=== PATIENT | female | born 1990 | race African-American/Black ===

== ENCOUNTER 2017-03-24 22:19 | Emergency (ER) | payer OTHER ==
[~2017-03-24] VITALS: Ht 160 cm; Wt 113.4 kg
[~2017-03-24 22:19] MED LIST: FLAGYL500 MG PO; NAPROSYN500 MG PO; NOHOMEMEDICATIONS
[2017-03-24] MEDS ORDERED: VALIUM5 MG PO (22:41)
[2017-03-24 23:28] VITALS: BP 148/87
== END 2017-03-24 23:30 | disposition home or self-care (01) ==
LOC: ER 22:19
DX: S39.012A Strain of muscle, fascia and tendon of lower back, initial encounter (principal); J45.909 Unspecified asthma, uncomplicated; Z88.1 Allergy status to other antibiotic agents; Z91.018 Allergy to other foods; X58.XXXA Exposure to other specified factors, initial encounter; Y93.89 Activity, other specified; Y92.89 Other specified places as the place of occurrence of the external cause; Y99.8 Other external cause status

== ENCOUNTER 2017-08-03 09:34 | Emergency (ER) | payer OTHER ==
[~2017-08-03] VITALS: Ht 160 cm; Wt 115.2 kg
[~2017-08-03 09:34] MED LIST changes: +VALIUM5 MG PO
[2017-08-03] MEDS ORDERED: NAPROSYN500 MG PO (10:07)
[2017-08-03] MEDS ORDERED: FLONASE 0.05%50 MCG NASAL (10:07)
[2017-08-03] MEDS ORDERED: MUCINEX D TABL1 EAC1 PO (10:07)
[2017-08-03 10:24] VITALS: BP 178/112
== END 2017-08-03 10:24 | disposition home or self-care (01) ==
LOC: ER 09:34
DX: J06.9 Acute upper respiratory infection, unspecified (principal); J34.89 Other specified disorders of nose and nasal sinuses; B34.9 Viral infection, unspecified; J45.909 Unspecified asthma, uncomplicated; Z88.1 Allergy status to other antibiotic agents; Z91.018 Allergy to other foods

== ENCOUNTER 2017-12-09 19:28 | Emergency (ER) | payer OTHER ==
[~2017-12-09] VITALS: Ht 160 cm; Wt 115.2 kg
--- NOTE | ~2017-12-09 | EKG ---
[address] [address] ELECTROCARDIOGRAM REPORT Name: JOE TAPIA [facility] M[facility]all[facility] [id number] Admission: 12/09/17 Attend Phys: Discharge: 12/09/17 Date of : [birth year] Report #: [id number] THIS REPORT FOR: //name// [facility] ED Test Date: 2017-12-09 Test Time: 19:52:12 Pat Name: JOE TAPIA Department: Room: Gender: F Slip Bridge Operator: JASMYNE : 1990 Requested By: Sarina Calderon Order Number: [id number] MD: Cristino Alcocer Measurements Intervals Martin Rate: 104 P: 37 GA: 149 QRS: 23 QRSD: 93 T: 17 QT: 323 QTc: 425 Interpretive Statements Sinus tachycardia No previous ECG available for comparison Electronically Signed On 12-10-2017 7:35:27 CDT by Cristino lAcocer [email or web address] <ELECTRONICALLY SIGNED> By: Cristino Alcocer MD 12/10/17 0735 195 51 Cristino Alcocer MD /EPI
[~2017-12-09 19:28] MED LIST changes: +FLONASE 0.05%50 MCG NASAL; +MUCINEX D TABL1 EAC1 PO
[2017-12-09 19:57] LABS: URINE BLOOD 1+ (Negative); URINE CLARITY CLEAR; URINE COLOR YELLOW; URINE GLUCOSE-RANDOM* NEGATIVE (Negative); URINE KETONES 3+ (Negative); URINE LEUKOCYTES NEGATIVE (Negative); URINE NITRITE NEGATIVE (Negative); URINE PROTEIN (DIPSTICK) NEGATIVE (Negative); URINE SPECIFIC GRAVITY >= 1.030 (1.005-1.035)
[2017-12-09 20:02] LABS: URINE BILIRUBIN NEGATIVE (Negative); URINE REDUCING SUBSTANCE NEGATIVE
[2017-12-09 20:04] LABS: BACTERIA 1-9 Few /HPF (None Seen); MUCUS 4-6 Moderate strn/LPF (None Seen); SQUAMOUS 0-3 Few /LPF (0-3); URINE RBC 0-2 Rare /HPF (0-2); URINE WBC 0-5 Rare /HPF (0-5)
[2017-12-09 20:05] LABS: CASTS None Seen /LPF (None Seen); CRYSTALS None Seen /LPF (None Seen)
[2017-12-09 20:08] LABS: ABSOLUTE NEUTROPHILS 6.1 thou/uL (1.4-8.2); BASOPHILS 0.8 % (0.0-2.0); EOSINOPHILS 0.3 % (0.0-3.0); HEMATOCRIT 42.1 % (37.0-47.0); HEMOGLOBIN 13.7 gm/dL (12.0-15.0); LYMPHOCYTES 22.2 % (24.0-44.0); MCHC 32.6 g/dL (28.0-37.0); MCV 76.6 fL (80.0-100.0); MONOCYTES 6.2 % (1.0-8.0); PLATELET COUNT 307 thou/uL (150-400); POLYS 70.5 % (36.0-66.0); RDW 14.3 % (10.5-14.5); WBC 8.7 thou/uL (4.0-11.0)
[2017-12-09 20:22] LABS: CALCIUM 9.1 mg/dL (8.5-10.1); CREATININE 0.8 mg/dL (0.6-1.0); POTASSIUM 3.5 mmol/L (3.5-5.1)
[2017-12-09 20:27] LABS: ALBUMIN 3.8 g/dL (3.4-5.0); TOTAL BILIRUBIN 1.2 mg/dL (<0.1-1.0); TOTAL PROTEIN 7.8 g/dL (6.4-8.2)
[2017-12-09 22:56] VITALS: BP 117/64
== END 2017-12-09 23:02 | disposition home or self-care (01) ==
LOC: ER 19:28
PROVIDERS: Nurse Practitioner Family
DX: E86.0 Dehydration (principal); I95.1 Orthostatic hypotension; J45.909 Unspecified asthma, uncomplicated; Z88.1 Allergy status to other antibiotic agents

== ENCOUNTER 2017-12-11 13:56 | Inpatient (IN) | payer OTHER ==
[~2017-12-11] VITALS: Ht 160 cm; Wt 115.2 kg
--- NOTE | ~2017-12-11 | O ---
[facility] [place] [address] OPERATIVE REPORT Name: JOE TAPIA Room #: 457-P [facility] IN M.R.#: [id number] Admission: 12/11/17 Attend Phys: Mono Mahan MD Discharge: 12/13/17 Date of : [birth year] Report #: [id number] THIS REPORT FOR: //name// CC: Mono Miller DATE OF SERVICE: 12/12/2017 SURGEON: Bharat Blakely MD BACK DIGGER OPERATOR: JOVANI Alford PREOPERATIVE DIAGNOSES: 1. Acute cholecystitis. 2. Morbid obesity (BMI 45). POSTOPERATIVE DIAGNOSES: 1. Acute cholecystitis with gallbladder hydrops. 2. Morbid obesity (BMI 45). 3. Incarcerated umbilical hernia. PROCEDURE: 1. Laparoscopic cholecystectomy with intraoperative cholangiogram. 2. Laparoscopic primary repair of incarcerated umbilical hernia (separate procedure). ANESTHESIA: General endotracheal anesthesia and local anesthetic. ESTIMATED BLOOD LOSS: 5 mL. SPECIMEN: Gallbladder. COMPLICATIONS: None appreciated. INDICATIONS FOR PROCEDURE: This is a 27-year-old morbidly obese female patient of Dr. Zara Miller who was seen in the [place] [facility] with nausea, vomiting and weakness, which began several days prior. On evaluation with an abdominal ultrasound, the patient was found to have a large shadowing nonmobile stone in the neck of the gallbladder with gallbladder wall thickening and a positive sonographic Carlos's sign. The patient had an exam consistent with acute cholecystitis. She presents now for laparoscopic cholecystectomy with intraoperative cholangiogram. OPERATIVE FINDINGS: Upon entrance in the abdominal cavity, the gallbladder was quite intrahepatic and appeared to be acutely inflamed with edema within the pericholecystic tissue. The gallbladder itself was also distended such that it [facility] [address] [place] [address] OPERATIVE REPORT Name: JONG TAPIAJASONJUMANA Room #: 457-P [facility] IN .R.#: [id number] Admission: 12/11/17 Attend Phys: Mono Mahan MD Discharge: 12/13/17 Date of : [birth year] Report #: [id number] required drainage of 80 mL of hydropic fluid with a Topol needle. No pus was seen. The gallbladder wall was thickened. The critical view consisting of the cystic artery, cystic duct and lower edge of the gallbladder forming a window through which the liver was visible was seen prior to clipping the cystic duct for cholangiogram. The cholangiogram showed no filling defects within the biliary tree. Contrast flowed freely into the duodenal sweep. The cystic duct stump and cystic artery stump were each controlled with two Hemoclips, which remained in vivo. While removing the gallbladder from the abdominal cavity, omentum was seen extending up to an umbilical hernia. After removal of the gallbladder from the abdominal cavity, the hernia was amenable to repair with a separate podvjl-im-umdhv 0 PDS suture. No other significant intra-abdominal pathology was seen. At the conclusion of the operation, the sponge, needle, and instrument counts were correct. There was good hemostasis within the abdominal cavity. There was no evidence for iatrogenic injury. The gallbladder was opened on the back table, which revealed an olive-sized nonpigmented gallstone in the neck of the gallbladder. DESCRIPTION OF PROCEDURE IN DETAIL: After the risks, benefits, and expectations of the operation were discussed in detail with the patient, informed consent was obtained. The patient was identified in the preoperative holding area. She was given IV antibiotics as documented in the chart in line with [facility] metrics. She had received scheduled IV antibiotics consisting of Levaquin and Flagyl. The patient was then taken to the Operating Room and she was placed in the supine position. SCDs were placed on the patient's bilateral lower extremities and pneumatic compression was initiated. The patient was then given IV sedation and she was intubated without incident. Her abdomen was prepped and draped in the standard sterile fashion. A time-out was performed to identify the correct patient and procedure. Local anesthetic was infiltrated into the skin and subcutaneous tissue supraumbilically where a curvilinear incision was made with #15 blade scalpel. Dissection was carried down to the fascia. An 11-mm Visiport was placed intraperitoneally with a 0-degree angled laparoscope. Pneumoperitoneum was then achieved with insufflation of carbon dioxide to 15 mmHg. A 30-degree angled laparoscope was inserted. A subxiphoid 5 mm and right subcostal 5 mm ports x 2 were placed under direct visualization after local anesthetic was infiltrated into the skin and subcutaneous tissue and appropriately sized incisions were made. Operative findings are as noted above. The omental adhesions to the gallbladder were carefully taken down with an appropriate traction and judicious use of the ultrasonic dissector. The gallbladder itself was unable to be grasped and a Topol needle was used to drain 80 mL of hydropic fluid from the gallbladder. The gallbladder was then retracted in a cephalad direction. The gallbladder peritoneum was scored medially and laterally with the ultrasonic dissector. Dissection was then carried out around the cystic artery and cystic duct to identify both structures as the only two structures entering the gallbladder. The critical view of safety was identified as described above. A clip was then placed on [address] [address] OPERATIVE REPORT Name: JOE TAPIA Room #: 457-P [facility] IN Kathi.#: [id number] Admission: 12/11/17 Attend Phys: Mono Mahan MD Discharge: 12/13/17 Date of : [birth year] Report #: [id number] the cystic duct at its junction with the neck of the gallbladder. A ductotomy was created. The cholangiocatheter was inserted and cholangiogram performed with findings as noted above. The cholangiocatheter was then removed and the cystic duct was doubly clipped distal to the ductotomy. The cystic artery was also triply clipped and each were divided with the ultrasonic dissector with a good seal/hemostasis leaving 2 clips on each stump. The gallbladder was then dissected out of the liver bed. The gallbladder itself was intrahepatic. Bleeding points were made hemostatic with electrocautery while dissecting the gallbladder free. After detaching the gallbladder from the liver bed, it was placed in an Endopouch and removed through the supraumbilical port site. While doing so, omentum was seen extending up into an umbilical defect. The incarcerated tissue was then dissected free and the umbilical defect was skeletonized. A vjlnir-oe-hheku 0 PDS suture was then used to close the hernia defect with 0 PDS suture using the Sarabjit-Mitesh laparoscopic fascial closure device. The suture was tied under direct visualization. A 0 PDS suture was also placed with the Sarabjit-Mitesh laparoscopic fascial closure device to approximate the port site fascial opening. The suture was tagged and the port was replaced. The abdominal cavity was reentered. The liver bed was made hemostatic with electrocautery. The Hemoclips were secure. There was good hemostasis within the abdominal cavity. No other significant findings were present. All other findings are as noted above. The port site fascial suture was then tied under direct visualization to ensure no incorporation of intra-abdominal content. The abdominal cavity was desufflated and the remaining ports were removed. Interrupted subcuticular 4-0 Monocryl sutures and Dermabond were used to close the skin incisions. The patient tolerated the procedure well. She was awakened, extubated, and taken to recovery room in stable condition with no apparent intraoperative complications. <ELECTRONICALLY SIGNED> By: Bharat Blakely MD, FACS 12/14/17 0826 [id number] Bharat Blakely MD, FACS /nt
[2017-12-11 14:32] VITALS: BP 146/93
[2017-12-11 15:17] LABS: ABSOLUTE NEUTROPHILS 4.6 thou/uL (1.4-8.2); BASOPHILS 0.8 % (0.0-2.0); EOSINOPHILS 0.9 % (0.0-3.0); HEMATOCRIT 43.8 % (37.0-47.0); HEMOGLOBIN 14.4 gm/dL (12.0-15.0); LYMPHOCYTES 25.3 % (24.0-44.0); MCH 25.1 pg (26.0-34.0); MCHC 32.8 g/dL (28.0-37.0); MCV 76.5 fL (80.0-100.0); MONOCYTES 7.5 % (1.0-8.0); PLATELET COUNT 267 thou/uL (150-400); POLYS 65.5 % (36.0-66.0); RBC 5.72 mil/uL (4.20-5.00); RDW 14.7 % (10.5-14.5); WBC 7.1 thou/uL (4.0-11.0)
[2017-12-11 15:18] LABS: URINE BILIRUBIN NEGATIVE (Negative); URINE BLOOD 3+ (Negative); URINE CLARITY CLEAR; URINE COLOR YELLOW; URINE GLUCOSE-RANDOM* NEGATIVE (Negative); URINE KETONES 2+ (Negative); URINE LEUKOCYTES NEGATIVE (Negative); URINE NITRITE NEGATIVE (Negative); URINE PROTEIN (DIPSTICK) NEGATIVE (Negative); URINE SPECIFIC GRAVITY <= 1.005 (1.005-1.035)
[2017-12-11 15:28] LABS: BACTERIA None Seen /HPF (None Seen); CASTS None Seen /LPF (None Seen); CRYSTALS None Seen /LPF (None Seen); MUCUS 4-6 Moderate strn/LPF (None Seen); SQUAMOUS 4-10 Moderate /LPF (0-3); URINE WBC 0-5 Rare /HPF (0-5)
[2017-12-11 15:29] LABS: URINE RBC 3-10 Few /HPF (0-2)
[2017-12-11 15:37] LABS: CREATININE 0.8 mg/dL (0.6-1.0); POTASSIUM 3.8 mmol/L (3.5-5.1)
[2017-12-11 15:43] LABS: ALBUMIN 3.7 g/dL (3.4-5.0); TOTAL BILIRUBIN 1.1 mg/dL (<0.1-1.0); TOTAL PROTEIN 7.9 g/dL (6.4-8.2)
[2017-12-11 18:10] VITALS: BP 124/80
[2017-12-11 18:30] VITALS: BP 143/91
[2017-12-11 20:23] VITALS: BP 154/85
[2017-12-12] VITALS (10 sets, daily range): BP systolic 125–143; BP diastolic 56–81
[2017-12-12 06:03] LABS: HEMATOCRIT 39.9 % (37.0-47.0); HEMOGLOBIN 12.8 gm/dL (12.0-15.0); MCH 25.2 pg (26.0-34.0); MCHC 32.2 g/dL (28.0-37.0); MCV 78.3 fL (80.0-100.0); RBC 5.09 mil/uL (4.20-5.00); WBC 8.4 thou/uL (4.0-11.0)
[2017-12-12 06:13] LABS: CALCIUM 8.3 mg/dL (8.5-10.1); CREATININE 0.7 mg/dL (0.6-1.0); POTASSIUM 3.2 mmol/L (3.5-5.1)
[2017-12-12 10:01] LABS: ALBUMIN 3.1 g/dL (3.4-5.0); DIRECT BILIRUBIN 0.3 mg/dL (<0.1-0.3); TOTAL BILIRUBIN 1.2 mg/dL (<0.1-1.0); TOTAL PROTEIN 6.7 g/dL (6.4-8.2)
[2017-12-12] MEDS ORDERED: SENNA-S TABLET1 EACH PO (12:39)
[2017-12-12] MEDS ORDERED: HYDROCODONE-AP1 EAC6 PO (12:39)
[2017-12-13] VITALS: BP 112/61
[2017-12-13 05:47] LABS: HEMATOCRIT 38.6 % (37.0-47.0); HEMOGLOBIN 12.4 gm/dL (12.0-15.0); MCHC 32.2 g/dL (28.0-37.0); MCV 77.6 fL (80.0-100.0); RBC 4.98 mil/uL (4.20-5.00); RDW 14.5 % (10.5-14.5); WBC 9.1 thou/uL (4.0-11.0)
[2017-12-13 05:48] VITALS: BP 129/67
[2017-12-13 06:04] LABS: CALCIUM 8.3 mg/dL (8.5-10.1); CREATININE 0.9 mg/dL (0.6-1.0); MAGNESIUM 1.8 mg/dL (1.8-2.4); POTASSIUM 3.3 mmol/L (3.5-5.1)
[2017-12-13 07:39] VITALS: BP 129/67
[2017-12-13 08:00] VITALS: BP 131/86
== END 2017-12-13 18:55 | disposition home or self-care (01) | DRG 418 ==
LOC: ER 13:56 → EROBS 17:22 → 4W 17:22 → ENTRNSPT 12-13 16:53 → 4W 12-13 18:55
PROVIDERS: Internal Medicine; Physician Assistant; Surgery
PROC: 0WQF4ZZ Repair Abdominal Wall, Percutaneous Endoscopic Approach (ICD-10-PCS; principal; 2017-12-13)
PROC: BF131ZZ Fluoroscopy of Gallbladder and Bile Ducts using Low Osmolar Contrast (ICD-10-PCS; principal; 2017-12-13)
PROC: 0FT44ZZ Resection of Gallbladder, Percutaneous Endoscopic Approach (ICD-10-PCS; principal; 2017-12-13)
DX: K80.00 Calculus of gallbladder with acute cholecystitis without obstruction (principal); E66.01 Morbid (severe) obesity due to excess calories; K42.9 Umbilical hernia without obstruction or gangrene; Z68.42 Body mass index [BMI] 45.0-49.9, adult; Z88.1 Allergy status to other antibiotic agents; Z91.018 Allergy to other foods
CPT/HCPCS: 10040; 50010; 50101; 50249; 50411; 50555; 50558; 50962; 51975; 52265; 52266; 53307; 54022; 54118; 55245; 55317; 56462; 56525; 56526; 56970; 62110; 62900; 70005

== ENCOUNTER 2018-09-11 09:15 | Emergency (ER) | payer OTHER ==
[~2018-09-11] VITALS: Ht 157.5 cm; Wt 98.4 kg
[~2018-09-11 09:15] MED LIST changes: +HYDROCODONE-AP1 EAC6 PO; +SENNA-S TABLET1 EACH PO
[2018-09-11 10:11] LABS: ABSOLUTE NEUTROPHILS 4.8 thou/uL (1.4-8.2); BASOPHILS 1.3 % (0.0-2.0); HEMATOCRIT 41.6 % (37.0-47.0); LYMPHOCYTES 23.4 % (24.0-44.0); MCH 25.8 pg (26.0-34.0); MCHC 33.5 g/dL (28.0-37.0); MCV 76.9 fL (80.0-100.0); PLATELET COUNT 236 thou/uL (150-400); POLYS 66.3 % (36.0-66.0); RBC 5.42 mil/uL (4.20-5.00); RDW 14.6 % (10.5-14.5); WBC 7.2 thou/uL (4.0-11.0)
[2018-09-11 11:38] LABS: CALCIUM 8.4 mg/dL (8.5-10.1); CREATININE 0.7 mg/dL (0.6-1.0)
[2018-09-11 11:44] LABS: ALBUMIN 3.2 g/dL (3.4-5.0)
[2018-09-11] MEDS ORDERED: PROAIR HFA8.5 GM INH (12:32)
[2018-09-11 12:45] VITALS: BP 124/81
--- NOTE | 2018-09-11 15:59 | EKG ---
[address] [address] ELECTROCARDIOGRAM REPORT Name: JOE TAPIA [id number] Admission: 09/11/18 Attend Phys: Discharge: 09/11/18 Date of : [birth year] Report #: [id number] THIS REPORT FOR: //name// [facility] ED Test Date: 2018-09-11 Test Time: 09:26:47 Pat Name: JOE TAPIA Department: Room: Gender: F Pulley Mortiser Operator: WANDA : 1990 Requested By: Medardo James Order Number: [id number] MD: Bernardo Granger Measurements Intervals [place] Rate: 78 P: 35 ID: [id number] QRS: 39 QRSD: 92 T: 32 QT: 353 QTc: 403 Interpretive Statements Sinus rhythm Normal tracing Compared to ECG 12/09/2017 19:52:12 Sinus tachycardia no longer present Electronically Signed On 09-11-2018 15:59:16 [employer]ED LIVESTOCK [employer] by Bernardo Granger [email or web address] <ELECTRONICALLY SIGNED> By: Bernardo Granger MD, [facility] 09/11/18 1559 0926 5 Bernardo Granger MD, FACC /EPI
== END 2018-09-11 12:56 | disposition home or self-care (01) ==
LOC: ER 09:15
PROVIDERS: Emergency Medicine
DX: J45.990 Exercise induced bronchospasm (principal); J45.909 Unspecified asthma, uncomplicated; Z91.018 Allergy to other foods; Z88.1 Allergy status to other antibiotic agents; Z90.49 Acquired absence of other specified parts of digestive tract

== ENCOUNTER 2018-09-14 12:51 | Emergency (ER) | payer OTHER ==
[~2018-09-14] VITALS: Ht 157.5 cm; Wt 98.4 kg
[~2018-09-14 12:51] MED LIST changes: +PROAIR HFA8.5 GM INH
[2018-09-14] MEDS ORDERED: PREDNISONE 20 M20 MG PO (14:00)
[2018-09-14 14:17] VITALS: BP 118/72
== END 2018-09-14 14:17 | disposition home or self-care (01) ==
LOC: ER 12:51
DX: M94.0 Chondrocostal junction syndrome [Tietze] (principal); R06.00 Dyspnea, unspecified; J45.909 Unspecified asthma, uncomplicated; Z88.1 Allergy status to other antibiotic agents; Z91.018 Allergy to other foods; Z90.49 Acquired absence of other specified parts of digestive tract

== ENCOUNTER 2018-11-22 21:18 | Emergency (ER) | payer OTHER ==
[~2018-11-22] VITALS: Ht 160 cm; Wt 97.1 kg
[~2018-11-22 21:18] MED LIST changes: +PREDNISONE 20 M20 MG PO
[2018-11-22 21:21] VITALS: BP 134/89
== END 2018-11-22 22:24 | disposition home or self-care (01) ==
LOC: ER 21:18
DX: J06.9 Acute upper respiratory infection, unspecified (principal); J02.9 Acute pharyngitis, unspecified; J45.909 Unspecified asthma, uncomplicated; Z88.1 Allergy status to other antibiotic agents; Z91.018 Allergy to other foods

== ENCOUNTER 2019-05-29 14:24 | Emergency (ER) | payer OTHER ==
[~2019-05-29] VITALS: Ht 160 cm; Wt 105.2 kg
[2019-05-29 14:44] LABS: URINE BLOOD 3+ (Negative); URINE CLARITY CLEAR; URINE COLOR YELLOW; URINE GLUCOSE-RANDOM* NEGATIVE (Negative); URINE KETONES NEGATIVE (Negative); URINE LEUKOCYTES-REFLEX NEGATIVE (Negative); URINE NITRITE-REFLEX NEGATIVE (Negative); URINE PROTEIN (DIPSTICK) TRACE (Negative); URINE SPECIFIC GRAVITY >= 1.030 (1.005-1.035); URINE UROBILINOGEN 0.2 E.U./dl (0.2-1.0)
[2019-05-29 14:47] LABS: ICTOTEST (BILI CONFIRMATORY) Negative (Negative); URINE BILIRUBIN NEGATIVE (Negative)
[2019-05-29 14:56] LABS: AMORPHOUS URATES Many /LPF (None Seen); BACTERIA-REFLEX None Seen /HPF (None Seen); CASTS None Seen /LPF (None Seen); SQUAMOUS 0-3 Few /LPF (0-3); URINE RBC >20 Many /HPF (0-2); URINE WBC-REFLEX None Seen /HPF (0-5)
[2019-05-29] MEDS ORDERED: FLAGYL500 M1 PO (18:15)
[2019-05-29] MEDS ORDERED: NAPROSYN500 MG PO ×2 (18:15→18:18)
[2019-05-29] MEDS ORDERED: NORFLEX100 MG PO (18:15)
[2019-05-29 18:45] VITALS: BP 137/87
== END 2019-05-29 18:45 | disposition home or self-care (01) ==
LOC: ER 14:24
PROVIDERS: Nurse Practitioner Family
DX: S39.012A Strain of muscle, fascia and tendon of lower back, initial encounter (principal); N76.0 Acute vaginitis; J45.998 Other asthma; Z90.49 Acquired absence of other specified parts of digestive tract; Z88.1 Allergy status to other antibiotic agents; Z91.018 Allergy to other foods

== ENCOUNTER 2019-09-02 10:29 | Emergency (ER) | payer BC ==
[~2019-09-02] VITALS: Ht 160 cm; Wt 113.4 kg
[~2019-09-02 10:29] MED LIST changes: +FLAGYL500 M1 PO; +NORFLEX100 MG PO
[2019-09-02] MEDS ORDERED: NAPROSYN500 MG PO (11:24)
[2019-09-02] MEDS ORDERED: NORFLEX100 MG PO (11:24)
[2019-09-02 11:44] VITALS: BP 151/76
== END 2019-09-02 11:37 | disposition home or self-care (01) ==
LOC: ER 10:29
DX: S46.812A Strain of other muscles, fascia and tendons at shoulder and upper arm level, left arm, initial encounter (principal); J45.909 Unspecified asthma, uncomplicated; Z90.49 Acquired absence of other specified parts of digestive tract; Z88.1 Allergy status to other antibiotic agents; Z91.018 Allergy to other foods; X58.XXXA Exposure to other specified factors, initial encounter; Y92.89 Other specified places as the place of occurrence of the external cause; Y93.89 Activity, other specified; Y99.8 Other external cause status

== ENCOUNTER 2020-02-07 11:33 | Emergency (ER) | payer BC, OTHER ==
[~2020-02-07] VITALS: Ht 160 cm; Wt 117.0 kg
[2020-02-07] MEDS ORDERED: IBUPROFEN 600600 M1 PO (12:36)
[2020-02-07 13:18] VITALS: BP 142/92
== END 2020-02-07 13:21 | disposition home or self-care (01) ==
LOC: ER 11:33
DX: S83.8X1A Sprain of other specified parts of right knee, initial encounter (principal); W01.0XXA Fall on same level from slipping, tripping and stumbling without subsequent striking against object, initial encounter; Y93.89 Activity, other specified; Y92.89 Other specified places as the place of occurrence of the external cause; Y99.0 Civilian activity done for income or pay

== ENCOUNTER 2020-11-13 15:52 | Emergency (ER) | payer BC ==
[~2020-11-13] VITALS: Ht 160 cm; Wt 113.4 kg
[~2020-11-13 15:52] MED LIST changes: +IBUPROFEN 600600 M1 PO
[2020-11-13 18:13] LABS: URINE BILIRUBIN NEGATIVE (Negative); URINE BLOOD NEGATIVE (Negative); URINE CLARITY CLEAR; URINE COLOR YELLOW; URINE GLUCOSE-RANDOM* NEGATIVE (Negative); URINE KETONES NEGATIVE (Negative); URINE LEUKOCYTES-REFLEX NEGATIVE (Negative); URINE NITRITE-REFLEX NEGATIVE (Negative); URINE PROTEIN (DIPSTICK) NEGATIVE (Negative); URINE SPECIFIC GRAVITY 1.025 (1.005-1.035); URINE UROBILINOGEN 0.2 E.U./dl (0.2-1.0)
[2020-11-13] MEDS ORDERED: ONDANSETRON HCL4 M2 PO (18:18)
[2020-11-13 19:00] VITALS: BP 144/68
== END 2020-11-13 19:07 | disposition home or self-care (01) ==
LOC: ER 15:52
PROVIDERS: Nurse Practitioner
DX: R11.2 Nausea with vomiting, unspecified (principal); Z79.899 Other long term (current) drug therapy; Z79.1 Long term (current) use of non-steroidal anti-inflammatories (NSAID); Z88.1 Allergy status to other antibiotic agents; Z91.018 Allergy to other foods

== ENCOUNTER 2021-09-12 22:44 | Emergency (ER) | payer BC ==
[~2021-09-12] VITALS: Ht 160 cm; Wt 117.9 kg
[~2021-09-12 22:44] MED LIST changes: +ONDANSETRON HCL4 M2 PO
[2021-09-12 23:06] VITALS: BP 173/93
[2021-09-12 23:17] LABS: URINE BILIRUBIN NEGATIVE (Negative); URINE BLOOD NEGATIVE (Negative); URINE CLARITY CLEAR; URINE COLOR YELLOW; URINE GLUCOSE-RANDOM* NEGATIVE (Negative); URINE KETONES NEGATIVE (Negative); URINE LEUKOCYTES-REFLEX NEGATIVE (Negative); URINE NITRITE-REFLEX NEGATIVE (Negative); URINE PROTEIN (DIPSTICK) NEGATIVE (Negative); URINE SPECIFIC GRAVITY >= 1.030 (1.005-1.035)
[2021-09-13] MEDS ORDERED: MELOXICAM15 MG PO (02:39)
[2021-09-14] MEDS ORDERED: DOXYCYCLINE 10100 MG PO (11:15)
== END 2021-09-13 02:48 | disposition home or self-care (01) ==
LOC: ER 22:44
PROVIDERS: Emergency Medicine
DX: S39.012A Strain of muscle, fascia and tendon of lower back, initial encounter (principal); N76.0 Acute vaginitis; Z90.49 Acquired absence of other specified parts of digestive tract; Z88.0 Allergy status to penicillin; Z91.02 Food additives allergy status; X58.XXXA Exposure to other specified factors, initial encounter; Y93.89 Activity, other specified; Y92.89 Other specified places as the place of occurrence of the external cause; Y99.8 Other external cause status